=== PATIENT | female | born 1990 | race African-American/Black ===

== ENCOUNTER 2018-09-21 09:24 | Inpatient (IN) | payer OTHER, MEDICAID ==
[~2018-09-21] VITALS: Ht 167.6 cm; Wt 107.0 kg
[2018-09-21 12:01] LABS: BASOPHILS % 0.5 % (0.0-2.0); EOSINOPHILS % 3.4 % (0.0-5.0); HEMATOCRIT. 33.7 % (36.0-48.0); HEMOGLOBIN. 10.7 g/dL (12.0-16.0); LYMPHOCYTES % 31.2 % (20.0-50.0); MEAN CORPUSCULAR HEMOGLOBIN 25.2 pg (28.0-32.0); MEAN CORPUSCULAR VOLUME 79.4 fL (81.0-99.0); MEAN PLATELET VOLUME 9.8 fl (7.4-10.4); NEUTROPHILS % 53.9 % (40.0-76.0); PLATELET 268 x1000/uL (130-400); RED BLOOD CELL COUNT 4.24 mill/uL (4.2-5.4); RED CELL DISTRIBUTION WIDTH 15.8 % (11.6-14.6)
[2018-09-21 12:03] LABS: CHLORIDE 108 mEq/L (98-107)
[2018-09-21 12:17] LABS: D-DIMER 0.33 mg/L FEU (<0.50); INR 0.9; PARTIAL THROMBOPLASTIN TIME 28.1 sec (23.4-31.0); PROTHROMBIN TIME 9.6 sec (9.6-11.0)
[2018-09-21 12:31] LABS: HCG SCREEN NEGATIVE
[2018-09-21] MEDS ORDERED: KETOROLAC 15MG/ML VIAL IV ONE (14:15)
[2018-09-21] MEDS ORDERED: ASPIRIN 81MG TABLET PO ONE (14:15)
[2018-09-21] MEDS ORDERED: ONDANSETRON HCL 4MG/2ML INJ IV ONE (14:15)
[2018-09-21 17:21] VITALS: BP 122/78
[2018-09-21 17:22] VITALS: BP 122/78
[2018-09-21] MEDS ORDERED: MAGNESIUM/ALUMINUM HYDROXIDE/SIMETHICONE 30ML UDC PO PRN (17:45)
[2018-09-21] MEDS ORDERED: KETOROLAC 15MG/ML VIAL IV PRN (17:45)
[2018-09-21] MEDS ORDERED: IPRATROPIUM/ALBUTEROL 0.5-3(2.5)MG/3ML NEB INH PRN (17:45)
[2018-09-21] MEDS ORDERED: ACETAMINOPHEN 325MG TABLET PO PRN (17:45)
[2018-09-21] MEDS ORDERED: NITROGLYCERIN 0.4MG TABLET SL SL PRN (17:45)
[2018-09-21] MEDS ORDERED: CLONIDINE 0.1MG TABLET PO PRN (17:45)
[2018-09-21] MEDS ORDERED: ONDANSETRON HCL 4MG/2ML INJ IV PRN (17:45)
[2018-09-21] MEDS ORDERED: DOCUSATE SODIUM 100MG CAPSULE PO PRN (17:45)
[2018-09-21] MEDS ORDERED: LORAZEPAM 0.5MG TABLET PO PRN (17:45)
[2018-09-21 20:00] VITALS: BP 118/51
[2018-09-21] MEDS: FAMOTIDINE 20MG TABLET PO SCH (20:54)
[2018-09-21] MEDS ORDERED: ZOLPIDEM TARTRATE 5MG TABLET PO PRN (21:00)
[2018-09-22] VITALS: BP 130/57
[2018-09-22 00:13] LABS: CREATINE KINASE 101 IU/L (26-192)
[2018-09-22 00:14] LABS: CREATINE KINASE MB FRACTION < 1.0 ng/mL (0.5-3.6)
[2018-09-22 00:19] LABS: OPIATES URINE SCREEN NEGATIVE (NEGATIVE)
[2018-09-22 00:21] LABS: *AMPHETAMINES SCREEN URINE NEGATIVE (NEGATIVE); *BARBITURATES SCREEN URINE NEGATIVE (NEGATIVE); *BENZODIAZEPINES SCREEN URINE NEGATIVE (NEGATIVE); *COCAINE SCREEN URINE NEGATIVE (NEGATIVE); METHADONE URINE SCREEN NEGATIVE (NEGATIVE)
[2018-09-22 00:22] LABS: CANNABINOID URINE SCREEN NEGATIVE (NEGATIVE); PHENCYCLIDINE URINE SCREEN NEGATIVE (NEGATIVE)
[2018-09-22 04:00] VITALS: BP 104/44
[2018-09-22 07:44] LABS: CREATINE KINASE 100 IU/L (26-192)
[2018-09-22 07:45] LABS: CREATINE KINASE MB FRACTION < 1.0 ng/mL (0.5-3.6)
[2018-09-22 08:00] VITALS: BP 134/80
[2018-09-22] MEDS: FAMOTIDINE 20MG TABLET PO SCH (08:51)
[2018-09-22 11:50] VITALS: BP 131/85
[2018-09-22 12:00] VITALS: BP 131/85
== END 2018-09-22 15:08 | disposition home or self-care (01) | DRG 47 ==
LOC: EDBD 09:24 → ER 09:24 → 6WST 15:08 → EDBEDREQTM 15:12 → EDBEDREQ 15:12 → ENRESERV 16:06
PROVIDERS: ADMIT Internal Medicine; ATTEND Internal Medicine
DX: G45.9 Transient cerebral ischemic attack, unspecified (principal); E44.1 Mild protein-calorie malnutrition; E83.51 Hypocalcemia; E66.9 Obesity, unspecified; J45.909 Unspecified asthma, uncomplicated; Z68.38 Body mass index [BMI] 38.0-38.9, adult; Z71.3 Dietary counseling and surveillance
CPT/HCPCS: 36415; 70551; 71045; 71275; 74174; 80061; 80305; 82550; 82553; 83036; 83880; 84443; 84484; 84703; 85379; 93005; 93970; 96374; 99285; J1885

== ENCOUNTER 2020-10-07 12:08 | Emergency (ER) | payer MEDICAID, SELFPAY ==
[~2020-10-07] VITALS: Ht 167.6 cm; Wt 98.0 kg
[2020-10-07] MEDS ORDERED: ALBU6.7H9 INH (14:48)
[2020-10-07 15:22] VITALS: BP 127/86
== END 2020-10-07 15:55 | disposition home or self-care (01) ==
LOC: ER 12:08
DX: R06.02 Shortness of breath (principal); J45.909 Unspecified asthma, uncomplicated; Z20.822 Contact with and (suspected) exposure to COVID-19
CPT/HCPCS: 71045; 81025; 99283